=== PATIENT | female | born 1985 | race African-American/Black ===

== ENCOUNTER 2021-01-02 13:12 | Emergency (ER) | payer OTHER ==
[~2021-01-02] VITALS: Ht 165.1 cm; Wt 63.0 kg
[2021-01-02 13:20] VITALS: BP_SYST 110
[2021-01-02] MEDS ORDERED: BACITRACIN 1 GM OINT TP ONE ×2 (13:45→13:50)
[2021-01-02] MEDS ORDERED: DIPH-TET-PERTUS Vaccine 0.5 ML VIAL (ADACEL) I.M. ONE (13:45)
[2021-01-02 14:01] VITALS: BP_SYST 110
== END 2021-01-02 13:52 | disposition home or self-care (01) ==
LOC: SED 13:12
DX: S10.81XA Abrasion of other specified part of neck, initial encounter (principal); Z88.1 Allergy status to other antibiotic agents; Z88.2 Allergy status to sulfonamides; Z91.040 Latex allergy status; W50.4XXA Accidental scratch by another person, initial encounter; Y93.89 Activity, other specified; Y92.89 Other specified places as the place of occurrence of the external cause; Y99.8 Other external cause status
CPT/HCPCS: 90715; 99283